=== PATIENT | male | born 1995 | race Hispanic/Latino ===

== ENCOUNTER 2022-10-21 20:12 | Emergency (ER) | payer OTHER ==
[~2022-10-21] VITALS: Ht 172.7 cm; Wt 107.0 kg
[2022-10-21] MEDS ORDERED: CEPH500B PO (20:55)
[2022-10-21 22:00] VITALS: BP 168/92; PULSE 94; RESP 16; O2SAT 100
== END 2022-10-21 22:05 | disposition home or self-care (01) ==
LOC: EDH 20:12
DX: L03.818 Cellulitis of other sites (principal); I10 Essential (primary) hypertension
CPT/HCPCS: 10060

== ENCOUNTER 2022-10-25 20:50 | Emergency (ER) | payer OTHER ==
[~2022-10-25] VITALS: Ht 172.7 cm; Wt 107.0 kg
[~2022-10-25 20:50] MED LIST: CEPH500B PO
[2022-10-25 21:04] VITALS: BP 121/65; PULSE 78; RESP 14; O2SAT 97
== END 2022-10-25 21:20 | disposition home or self-care (01) ==
LOC: EDH 20:50
DX: G89.29 Other chronic pain (principal); M79.673 Pain in unspecified foot; I10 Essential (primary) hypertension; Z48.817 Encounter for surgical aftercare following surgery on the skin and subcutaneous tissue
CPT/HCPCS: 99281

== ENCOUNTER 2023-09-30 13:58 | Emergency (ER) | payer OTHER ==
[~2023-09-30] VITALS: Ht 172.7 cm; Wt 113.4 kg
[2023-09-30] MEDS: ACETAMINOPHEN 500 MG TABLET PO ONE (14:37)
[2023-09-30] MEDS: ONDANSETRON ODT 4MG TAB SL ONE (14:37)
[2023-09-30 15:01] LABS: RAPID GROUP A STREP negative (NEGATIVE)
[2023-09-30 15:11] LABS: INFLUENZA TYPE B Negative For Type B (NEGATIVE)
[2023-09-30 15:12] LABS: COVID19 (SARS ANTIGEN RAPID) PRESUMPTIVE NEGATIVE (NEGATIVE)
[2023-09-30 15:16] LABS: INFLUENZA TYPE A Positive For Type A (NEGATIVE)
[2023-09-30] MEDS ORDERED: BENZ-39 PO (15:37)
[2023-09-30] MEDS ORDERED: OSEL75 PO (15:37)
[2023-09-30 16:02] VITALS: BP 160/100; PULSE 100; RESP 18; O2SAT 96
== END 2023-09-30 16:06 | disposition home or self-care (01) ==
LOC: EDH 13:58
DX: J10.1 Influenza due to other identified influenza virus with other respiratory manifestations (principal); I10 Essential (primary) hypertension; R50.9 Fever, unspecified; Z20.822 Contact with and (suspected) exposure to COVID-19
CPT/HCPCS: 87426; 87804; 87880

== ENCOUNTER 2025-03-13 16:03 | Emergency (ER) | payer SELFPAY ==
[~2025-03-13] VITALS: Ht 170.2 cm; Wt 115.2 kg
[~2025-03-13 16:03] MED LIST changes: +BENZ-39 PO; +OSEL75 PO
--- NOTE | 2025-03-13 16:16 | EKG ---
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
--- NOTE | 2025-03-13 16:28 | ERN ---
General Chief Complaint: Hypertension Stated Complaint: HIGH BLOOD PRESSURE Time Seen by MD: 19:13 Source: patient History of Present Illness Initial Comments The year old male who came to the ER with complaint of high blood pressure. The patient went to his PCP where he was found to have high blood pressure. . He has had high blood pressure sentences teenage years and he has been taking losartan 50 mg for that. As per the patient, due to the low supply of the medication the patient was not indicating the medication for few weeks and then he took1 today before going to his primary care doctor. The no chest pain, headache, vision or shortness of breath Timing/Duration: 1-3 hours Severity: mild Allergies: Coded Allergies: No Known Allergies (Unverified Allergy, Unknown, 10/21/22) Home Meds Active Scripts Benzonatate (Tessalon Perles) 100 Mg Cap, 100 MG PO TID for cough, #30 CAP 0 Refills Prov:SALINAS KRAMER FIELD LABORER 09/30/23 Oseltamivir Phosphate (Tamiflu) 75 Mg Cap, 75 MG PO BID for 5 Days, #1 CAP Prov:SALINAS KRAMER FIELD LABORER 09/30/23 Cephalexin Monohydrate (Keflex) 500 Mg Cap, 500 MG PO QID for 7 Days, #28 CAP Prov:DANN SALAZAR V FIELD LABORER 10/21/22 Past Medical History Past Medical History: Hypertension Past Surgical History: None Constitutional: (-) chills, (-) diaphoresis, (-) fever, (-) malaise, (-) weakness, (-) other documentation Respiratory: (-) cough, (-) orthopnea, (-) short of breath, (-) stridor, (-) wheezing, (-) other documentation Gastrointestinal/Abdominal: (-) nausea, (-) vomiting, (-) diarrhea, (-) abdominal pain, (-) abdominal distention, (-) constipation, (-) rectal bleeding, (-) dark stool/melena, (-) other documentation Genitourinary: (-) penile discharge, (-) dysuria, (-) frequency, (-) hematuria, (-) pain, (-) other documentation Musculoskeletal: (-) Neck pain, (-) back pain, (-) Flank Pain, (-) joint pain, (-) joint swelling, (-) muscle pain, (-) muscle stiffness, (-) gout, (-) other documentation Skin: (-) laceration, (-) contusion, (-) abrasion, (-) abscess, (-) rash, (-) change in color, (-) change in hair, (-) change in nails, (-) diaphoresis, (-) dryness, (-) other documentation Psych: (-) depression, (-) suicidal ideation, (-) anxiety, (-) emotional problems, (-) auditory hallucinations, (-) visual hallucinations Hematologic/Lymphatic: (-) anemia, (-) blood clots, (-) easy bleeding, (-) easy bruising, (-) swollen glands, (-) other documentation Physical Exam General Appearance: (-) no apparent distress, (-) apparent distress, (-) mild distress, (-) moderate distress, (-) severe distress, (-) thin, (-) obese, (-) combative, (-) cachetic, (-) anxious, (-) other documentation Orientation: (-) alert, (-) oriented x 3, (-) disoriented, (-) other documentation Ear, Nose, Throat: (-) hearing grossly normal, (-) normal ENT inspection, (-) moist mucous membraine, (-) normal pharynx, (-) normal TM, (-) abnormal TM, (-) pharyngeal erythema, (-) sinus drainange, (-) sinus pain, (-) tonsillar exudate, (-) tonsillar swelling, (-) nasal drip, (-) nasal congestion, (-) hearing decreased, (-) dry mucous membraine, (-) other documentation Neck: (-) normal inspection, (-) supple, (-) full range of motion, (-) no JVD, (-) non-tender, (-) no bruit, (-) tender, (-) limited range of motion, (-) tender lateral, (-) tender midline, (-) thyromegaly, (-) lymphadenopathy, (-) masses, (-) carotid bruit, (-) other documentaion Respiratory: (-) chest non-tender, (-) lungs clear, (-) well ventilated, (-) decreased breath sounds, (-) retractions, (-) abnormal breath sound, (-) crackles, (-) plerual rub, (-) rales, (-) rhonchi, (-) stridor, (-) wheezing, (- ) other documentation Heart: (-) regular, (-) no gallop, (-) murmur, (-) irregular, (-) bradycardia, (-) tachycardia, (-) systolic murmur, (-) diastolic murmur, (-) extra beats, (-) friction rub, (-) gallop/S3, (-) gallop/S4, (-) other documentation Vascular: (-) no edema, (-) normal peripheral pulse, (-) no JVD, (-) abdominal aorta, (-) abnormal peripheral pulse, (-) carotid bruit, (-) edema, (-) JVD, (-) varicose vein, (-) other documentation Gastrointestinal: (-) soft, (-) non-tender, (-) no organomegaly, (-) bowel sound present, (-) distended, (-) tender, (-) abnormal bowel sounds, (-) bowel sound absent, (-) rebound, (-) lloyd's sign, (-) guarding, (-) hernia, (-) mass, (-) pulsatile mass, (-) CVA tenderness, (-) hepatomegaly, (-) spleenomegaly, (-) other documentation, (-) McBerney's, (-) other documentation Results Laboratory and Microbiology Lab and Micro Result Laboratory Tests Test 03/13/25 16:23 White Blood Count 8.9 K/uL (4.8-10.8) Red Blood Count 5.52 MIL/uL (4.50-6.20) Hemoglobin 16.5 g/dL (14.0-18.0) Hematocrit 46.6 % (42-54) Mean Corpuscular Volume 84.4 fL (79-99) Mean Corpuscular Hemoglobin 29.9 pg (27.0-33.0) Mean Corpuscular Hemoglobin Concent 35.4 g/dL (32.0-36.0) Red Cell Distribution Width 12.8 % (11.0-15.5) Platelet Count 325 K/uL (130-400) Mean Platelet Volume 9.9 fL (7.5-10.5) Nucleated Red Blood Cells 0.0 % (0.0-0.19) Sodium Level 139 mmol/L (136-145) Potassium Level 4.1 mmol/L (3.5-5.1) Chloride Level 103 mmol/L (101-111) Carbon Dioxide Level 26 mmol/L (21-32) Blood Urea Nitrogen 11 mg/dL (7-18) Creatinine 1.0 mg/dL (0.5-1.3) Glomerular Filtration Rate Calc 104 mL/min (>90) Random Glucose 84 mg/dL (70-105) Total Calcium 9.1 mg/dL (8.5-10.1) Total Bilirubin 0.5 mg/dL (0.2-1.0) Aspartate Amino Transf (AST/SGOT) 20 U/L (10-37) Alanine Aminotransferase (ALT/SGPT) 45 U/L (12-78) Alkaline Phosphatase 72 U/L (50-136) Troponin I High Sensitivity 15 ng/L (4-75) Total Protein 8.0 g/dL (6.0-8.3) Albumin 4.1 g/dL (3.5-5.0) MDM Assumed care of the patient at 7:00 p.m. at shift change- This is a 29-year-old male who has a known history of hypertension has been off his losartan was seen at the PCP's office and apparently his blood pressure was elevated to 194/118 he was immediately sent to the emergency room for further evaluation. He denied any headache blurred vision diplopia facial droop slurred speech motor weakness or seizure activity. Also denied any chest pain pressure PND orthopnea. No hematuria. Temperature 98.9 pulse 84 respirations 18 blood pressure 207/124 with a pulse oximetry of 96% on room air 7:00 p.m. labs reviewed CBC is with a normal limits BNP 7 shows a BUN and creatinine of 11 and 1.0 troponins are 15. Patient had received labetalol before my evaluation. The blood pressures have improved to 160s over 98. I updated the patient and his mother at bedside on all the labs and goals of care for the hypertensive urgency. I will send a prescription for losartan for 10 days until he is able to get back to his primary care physician. Rationale: Tests considered and ordered secondary to shared decision making include: Labs and EKG Previous outside records reviewed: Old ER visits. Risk of complication and/or morbidity or mortality of patient management: None Medications-Per medication reconciliation Need for hospitalization: Patient does not meet criteria for hospitalization. Need for emergency major/minor surgery: No There are no social concerns with this patient. Prescription drug management Prescriptions will include symptomatic care Patient's prior external medical records from other ER visits were reviewed by me as indicated. Prior testing and results from previous visits were reviewed. Prior tests were taken into account with medical decision making and resource utilization, independent historian/historians were used to obtain complete medical history. I independently interpreted the test that were performed, results were reviewed by me and considered findings on radiology if ordered. Medical management and examination interpretation discussions were had by me with other qualified healthcare professionals as indicated for the patient's care. ED Course Orders Procedure Category Date Status Time 12 Lead Ekg Tracing- EKG 03/13/25 Resulted Technical 16:09 Cbc Without LAB 03/13/25 Complete Differential 16:09 Comprehensive LAB 03/13/25 Complete Metabolic Panel 16:09 Troponin I High LAB 03/13/25 Complete Sensitivity 16:09 Labetalol 20mg Syg PHA 03/13/25 Complete (Trandate 20mg Syg) 16:30 Current Medications Medications (Trade) Dose Ordered Sig/Orlin Route PRN Reason Start Time Stop Time Status Last Admin Dose Admin Labetalol HCl (TRANdate 20MG SYG) 10 mg ONCE ONCE IV 03/13/25 16:30 03/13/25 16:31 DC 03/13/25 17:58 Vital Signs Date Time Temp Pulse Resp B/P (MAP) Pulse Ox O2 Delivery O2 Flow Rate FiO2 03/13/25 19:45 97.9 79 17 166/97 100 Room Air* 0 03/13/25 18:58 78 17 163/98 98 Room Air* 0 03/13/25 18:28 77 17 165/105 99 Room Air* 0 03/13/25 17:58 188/106 03/13/25 17:45 82 19 188/105 98 Room Air* 0 03/13/25 16:52 213/134 Room Air* 0 03/13/25 16:05 98.4 84 18 207/124 96 Room Air DX & DISP Disposition: Discharge Departure Impression: Primary Impression: Hypertensive urgency Additional Impression: Morbid obesity with BMI of 40.0-44.9, adult Condition: Stable Scripts Losartan Potassium (Losartan Potassium) 50 Mg Tablet 1 TAB PO DAILY for 10 Days, #10 TAB 0 Refills Prov: MARTIN FERRARA MD 03/13/25 Additional Instructions: Patient and the caregiver have been informed of all the diagnostic tests and the imaging conducted during the today's visit to the emergency room and has verbalized understanding of the results I have personally reviewed and interpreted all diagnostic exams performed here in the ER today as well as the vital signs documented by the nursing staff. The patient is now being discharged to home and should follow up with the primary care physician or the specialist as directed by the ER staff. 1 schedule a follow-up appointment; call your primary care physician's office on the next business day to set up a follow-up appointment. 2. Monitor symptoms; if your symptoms worsen return to the emergency room immediately. 3. Return to school/work; you may return to work or school in 2 days or as directed by your primary care physician. 4. Manage pain and fever; take yevd-koo-khauony Tylenol or Advil for pain or fever if there are no contraindications follow the recommended dosage instructions. 5. Stay well hydrated; drink plenty of oral fluids to stay hydrated. 6. Take prescribed medications; take any medications prescribed in the emergency room as directed bring them with you to your primary care physician visit for possible adjustments. 7. Complete medication course; finish the entire course of medication as prescribed even if you start feeling better. Do not have any leftover medication unless instructed otherwise. 8. Follow up on culture results; if a urine culture and wound culture was ordered in the emergency room please follow-up with your primary care physician within 2-3 days to review the culture and sensitivity report for appropriate antibiotic therapy adjustments. 9. Resume home medications; you may resume taking your home medications unless instructed otherwise. 10. Weight loss diet, exercise and lifestyle modifications to improve your health and reduce complications and comorbidities Referrals: SELF,REFERRAL (PCP) JEFRY GARCIA MD Mar 13, 2025 16:28 MARTIN FERRARA MD Mar 13, 2025 20:11
[2025-03-13 16:30] LABS: NUCLEATED RED BLOOD CELLS 0.0 % (0.0-0.19); PLATELET COUNT (AUTO) 325.0 K/uL (130-400); RED BLOOD CELL COUNT(AUTO) 5.52 MIL/uL (4.50-6.20); RED CELL DISTRIBUTION WIDTH 12.8 % (11.0-15.5); WHITE BLOOD COUNT (AUTO) 8.9 K/uL (4.8-10.8)
[2025-03-13 16:40] LABS: CREATININE 1.0 mg/dL (0.5-1.3); GLOMERULAR FILTR. RATE CALC 104.0 mL/min (>90); GLUCOSE,RANDOM 84.0 mg/dL (70-105); SODIUM SERUM 139.0 mmol/L (136-145); UREA NITROGEN, BLOOD 11.0 mg/dL (7-18)
[2025-03-13 16:49] LABS: ASPARTATE AMINOTRANSFERASE 20.0 U/L (10-37); TOTAL PROTEIN, SERUM 8.0 g/dL (6.0-8.3)
--- NOTE | 2025-03-13 17:00 | NUR ---
PT JUST NOW PLACED IN ED BED 12
--- NOTE | 2025-03-13 17:54 | NUR ---
PT STATES HE HAD NOT TAKEN ANY MEDS EXCEPT UNTIL TODAY D/T RUNNING LOW AND WAS AT PCP OFFICE FOR REFILLS.
--- NOTE | 2025-03-13 19:12 | NUR ---
REPORT ENDORSED TO BIPIN CHANDLER
--- NOTE | 2025-03-13 19:21 | NUR ---
PT CARE ASSUMED AT THIS TIME
[2025-03-13] MEDS ORDERED: LOSA50TA64 PO (20:08)
[2025-03-13 20:44] VITALS: BP 155/99; PULSE 76; RESP 15; TEMP 97.9; O2SAT 100
== END 2025-03-13 21:11 | disposition home or self-care (01) ==
LOC: EDH 16:03
DX: I16.0 Hypertensive urgency (principal); E66.01 Morbid (severe) obesity due to excess calories; Z68.41 Body mass index [BMI] 40.0-44.9, adult
CPT/HCPCS: 99285; 96374; 96375; 84484; 80053; 85027; 36415; 93005; J0360